=== PATIENT | female | born 1990 | race African-American/Black ===

== ENCOUNTER 2016-08-05 12:45 | Emergency (ER) | payer OTHER ==
[~2016-08-05] VITALS: Ht 167.6 cm; Wt 109.0 kg
[2016-08-05 12:45] VITALS: BP 133/87; PULSE 92; RESP 20; TEMP 98.7; O2SAT 99
[~2016-08-05 12:45] MED LIST: MAAL1000 CHEW
[2016-08-05] MEDS ORDERED: SODIUM CHLOR 0.9% 1000 ML INJ 1,000 ML IV SCH (13:09)
--- NOTE | 2016-08-05 13:12 | PD ---
HPI Chief Complaint: Abdominal Pain Time Seen by Provider: 13:09 Travel History International Travel<30 days: No Contact w/Intl Traveler<30days: No Traveled to known affect area: No History of Present Illness HPI 25-year-old female with no significant past medical issues, presents to the ER today with left lower quadrant pains which she states just started several hours ago work suddenly and she states is currently a 10 out of 10. She denies any nausea, fevers, vomiting, urinary symptoms, or any other issues. She states that the pain is not alleviating or exacerbated by any factors she knows of. Modifying Factors: None Associated Signs & Symptoms: Left lower quadrant abdominal pain Risk Factors: None PFSH Past Medical History ?: Not LMP: 07/27/16 : 0 Social History Alcohol Use: No Tobacco Use: No Substance Use: No Allergies-Medications (Allergen,Severity, Reaction): Coded Allergies: No Known Allergies (Verified , 08/05/16) Reported Meds & Prescriptions Reported Meds & Active Scripts Active No Active Prescriptions or Reported Medications Review of Systems Except as stated in HPI: all other systems reviewed are Neg Physical Exam Narrative GENERAL: Well-developed young -[place] female patient currently in mild distress. Awake and oriented 3. SKIN: Focused skin assessment warm/dry. HEAD: Atraumatic. Normocephalic. EYES: Pupils equal and round. No scleral icterus. No injection or drainage. ENT: No nasal bleeding or discharge. Mucous membranes pink and moist. NECK: Trachea midline. No JVD. CARDIOVASCULAR: Regular rate and rhythm. No murmur appreciated. RESPIRATORY: No accessory muscle use. Clear to auscultation. Breath sounds equal bilaterally. GASTROINTESTINAL: Abdomen soft, mild left lower quadrant tenderness without guarding or rebound, nondistended. Hepatic and splenic margins not palpable. MUSCULOSKELETAL: No obvious deformities. No clubbing. No cyanosis. No edema. NEUROLOGICAL: Awake and alert. No obvious cranial nerve deficits. Motor grossly within normal limits. Normal speech. PSYCHIATRIC: Appropriate mood and affect; insight and judgment normal. Data Data Last Documented VS Vital Signs Date Time Temp Pulse Resp B/P Pulse Ox O2 Delivery O2 Flow Rate FiO2 08/05/16 13:22 18 100 Room Air 08/05/16 12:45 98.7 92 133/87 Orders Complete Blood Count With Diff (08/05/16 13:09) Comprehensive Metabolic Panel (08/05/16 13:09) Urinalysis - C+S If Indicated (08/05/16 13:09) Ct Abd/Pel W/O Iv Contrast (08/05/16 13:09) Iv Access Insert/Monitor (08/05/16 13:09) Ecg Monitoring (08/05/16 13:09) Oximetry (08/05/16 13:09) Morphine Inj (Morphine Inj) (08/05/16 13:15) Ondansetron Inj (Zofran Inj) (08/05/16 13:15) Sodium Chlor 0.9% 1000 Ml Inj (Ns 1000 M (08/05/16 13:09) Sodium Chloride 0.9% Flush (Ns Flush) (08/05/16 13:15) Ed Urine Pregnancytest Poc (08/05/16 13:09) Labs Laboratory Tests Test 08/05/16 08/05/16 13:25 15:19 White Blood Count 4.7 TH/MM3 Red Blood Count 4.31 MIL/MM3 Hemoglobin 12.1 GM/DL Hematocrit 36.0 % Mean Corpuscular Volume 83.6 FL Mean Corpuscular Hemoglobin 28.1 PG Mean Corpuscular Hemoglobin 33.7 % Concent Red Cell Distribution Width 14.6 % Platelet Count 391 TH/MM3 Mean Platelet Volume 8.0 FL Neutrophils (%) (Auto) 39.2 % Lymphocytes (%) (Auto) 52.9 % Monocytes (%) (Auto) 5.7 % Eosinophils (%) (Auto) 0.9 % Basophils (%) (Auto) 1.3 % Neutrophils # (Auto) 1.8 TH/MM3 Lymphocytes # (Auto) 2.5 TH/MM3 Monocytes # (Auto) 0.3 TH/MM3 Eosinophils # (Auto) 0.0 TH/MM3 Basophils # (Auto) 0.1 TH/MM3 CBC Comment DIFF FINAL Differential Comment Sodium Level 142 MEQ/L Potassium Level 3.6 MEQ/L Chloride Level 107 MEQ/L Carbon Dioxide Level 26.2 MEQ/L Anion Gap 9 MEQ/L Blood Urea Nitrogen 9 MG/DL Creatinine 1.06 MG/DL Estimat Glomerular Filtration 77 ML/MIN Rate Random Glucose 107 MG/DL Calcium Level 8.6 MG/DL Total Bilirubin 0.2 MG/DL Aspartate Amino Transf 11 U/L (AST/SGOT) Alanine Aminotransferase 20 U/L (ALT/SGPT) Alkaline Phosphatase 90 U/L Total Protein 7.8 GM/DL Albumin 3.4 GM/DL Urine Color YELLOW Urine Turbidity CLEAR Urine pH 6.5 Urine Specific [place] 1.020 Urine Protein NEG mg/dL Urine Glucose (UA) NEG mg/dL Urine Ketones NEG mg/dL Urine Occult Blood NEG Urine Nitrite NEG Urine Bilirubin NEG Urine Urobilinogen LESS THAN 2.0 MG/DL Urine Leukocyte Esterase NEG Urine RBC LESS THAN 1 /hpf Urine WBC 1 /hpf Urine Squamous Epithelial 2 /hpf Cells Urine Bacteria RARE /hpf Urine Mucus FEW /lpf Microscopic Urinalysis Comment CULT NOT INDICATED MDM Medical Decision Making Medical Screen Exam Complete: Yes Emergency Medical Condition: Yes Medical Record Reviewed: Yes Interpretation(s) Laboratory Tests Test 08/05/16 13:25 Lymphocytes (%) (Auto) 52.9 % (9.0-44.0) Creatinine 1.06 MG/DL (0.50-1.00) Estimat Glomerular Filtration 77 ML/MIN (>89) Rate Random Glucose 107 MG/DL (74-106) Aspartate Amino Transf 11 U/L (15-37) (AST/SGOT) Differential Diagnosis Left lower quadrant abdominal painsrenal colic versus musculoskeletal versus ectopic Narrative Course Patient is not . Abdomen is fairly benign and I do not suspect an acute intra-abdominal process. There are no significant signs of metabolic issues. UA shows no signs of UTI or blood. At this point, my plan would be to release the patient would follow-up to primary care physician. Return for any worsening in symptoms as necessary. The plan has discussed with her and she is agreeable. Diagnosis Primary Impression: Abdominal pain Med/Other Pt SpecificInfo: Prescription(s) given Scripts Ibuprofen (Motrin Ib)200 Mg Xpl431 Mg PO Q6H PRN (PAIN SCALE 1 TO 10) #20 TAB Ref 0 Prov:Laila Gonzales MD 08/05/16 Disposition: 01 DISCHARGE HOME Condition: Stable Laila Gonzales MD August 05, 2016 13:12
[2016-08-05] MEDS ORDERED: SODIUM CHLORIDE 0.9% FLUSH 10 ML FLUSH IV FLUSH PRN (13:15)
[2016-08-05] MEDS ORDERED: MORPHINE SULFATE 4 MG/ML INJ IV PUSH ONE (13:15)
[2016-08-05] MEDS ORDERED: ONDANSETRON HCL 4 MG/2 ML VIAL IVP ONE (13:15)
[2016-08-05 13:22] VITALS: RESP 18; O2SAT 100
[2016-08-05 13:40] LABS: AUTOMATED NEUTROPHIL # 1.8 TH/MM3 (1.8-7.7); BASOPHIL # 0.1 TH/MM3 (0-0.2); BASOPHIL % 1.3 % (0.0-2.0); EOSINOPHIL % 0.9 % (0.0-4.0); HEMO FLAGS DIFF FINAL; LYMPH % 52.9 % (9.0-44.0); LYMPHOCYTE # 2.5 TH/MM3 (1.0-4.8); MEAN CELL VOLUME 83.6 FL (80.0-100.0); MEAN CORPUSCULAR HEMOGLOBIN 28.1 PG (27.0-34.0); MEAN CORPUSCULAR HGB CONC 33.7 % (32.0-36.0); MONO % 5.7 % (0.0-8.0); NEUT % 39.2 % (16.0-70.0); PLATELET COUNT 391 TH/MM3 (150-450); RED BLOOD COUNT 4.31 MIL/MM3 (4.00-5.30); RED CELL DISTRIBUTION WIDTH 14.6 % (11.6-17.2); WHITE BLOOD COUNT 4.7 TH/MM3 (4.0-11.0)
[2016-08-05 13:54] LABS: ANION GAP 9 MEQ/L (5-15); AST (GOT) 11 U/L (15-37); BICARBONATE 26.2 MEQ/L (21.0-32.0); BLOOD UREA NITROGEN 9 MG/DL (7-18); CHLORIDE 107 MEQ/L (98-107); GLOMERULAR FILTRATION RATE 77 ML/MIN (>89); POTASSIUM 3.6 MEQ/L (3.5-5.1); SODIUM (NA) 142 MEQ/L (136-145)
[2016-08-05 13:57] LABS: ALKALINE PHOSPHATASE 90 U/L (45-117); ALT (GPT) 20 U/L (10-53); TOTAL BILIRUBIN ADULT 0.2 MG/DL (0.2-1.0)
--- NOTE | 2016-08-05 14:51 | RADRPT ---
EXAM DATE/TIME: 08/05/2016 14:37 [facility] COMPARISON: No previous studies available for comparison. INDICATIONS : Left lower abdomen pain today. ORAL CONTRAST: No oral contrast ingested. RADIATION DOSE: 27.36 CTDIvol (mGy) MEDICAL HISTORY : None SURGICAL HISTORY : None. ENCOUNTER: Initial ACUITY: 1 day PAIN SCALE: 5/10 LOCATION: Left lower quadrant TECHNIQUE: Volumetric scanning of the abdomen and pelvis was performed. Using automated exposure control and ad justment of the mA and/or kV according to patient size, radiation dose was kept as low as reasonably achievable to obtain optimal diagnostic quality images. FINDINGS: LOWER LUNGS: The visualized lower lungs are clear. LIVER: Homogeneous density without lesion. There is no dilation of the biliary tree. No calcified gallston es. SPLEEN: Normal size without lesion. PANCREAS: Within normal limits. KIDNEYS: Normal in size and shape. There is no mass, stone, or hydronephrosis. ADRENAL GLANDS: Within normal limits. VASCULAR: There is no aortic aneurysm. BOWEL/MESENTERY: The stomach, small bowel, and colon demonstrate no acute abnormality. There is no free intraperitone al air. There is a small amount of fluid in the cul-de-sac. There is a normal appendix. ABDOMINAL WALL: Within normal limits. RETROPERITONEUM: There is no lymphadenopathy. BLADDER: No wall thickening or mass. REPRODUCTIVE: Within normal limits. INGUINAL: There is no lymphadenopathy or hernia. MUSCULOSKELETAL: Within normal limits for patient age. CONCLUSION: 1. Small amount of fluid in the posterior cul-de-sac. The uterus and adnexa appear unremarkable. 2. No renal calculi or obstruction. 3. Unremarkable bowel gas pattern and normal appendix. No oral contrast was given limiting the sensit ivity of the exam. Vick Centeno MD on August 05, 2016 at 14:47 Board Certified Radiologist. This report was verified electronically.
[2016-08-05 16:08] LABS: BACTERIA, URINE RARE /hpf; BLOOD, URINE NEG (NEG); COMMENT (UR) CULT NOT INDICATED; CULTURE IF INDICATED CULT NOT INDICATED; GLUCOSE,URINE NEG (NEG); KETONE, URINE NEG (NEG); MUCUS URINE FEW /lpf (OCC); NITRITE,URINE NEG (NEG); PH, URINE 6.5 (5.0-8.5); SQUAMOUS EPITHELIAL CELL URINE 2 /hpf (0-5); URINE COLOR YELLOW (YELLW/STRAW)
[2016-08-05] MEDS ORDERED: MOTR200T4 PO (16:12)
[2016-08-05 16:36] VITALS: BP 116/55; PULSE 66; RESP 18; O2SAT 100
== END 2016-08-05 16:50 | disposition home or self-care (01) ==
LOC: NEPD 12:45
DX: R10.32 Left lower quadrant pain (principal)
CPT/HCPCS: 74176; 80053; 81001; 84703; 85025; 96361; 96374; 96375; 99284; J2270; J2405; J7030